=== PATIENT | female | born 1990 | race Caucasian/White ===

== ENCOUNTER 2019-01-19 15:44 | Outpatient (CLI) | payer MEDICAID ==
[2019-01-19 16:06] LABS: ADD UMIC NO; UR ASCORBIC ACID NEGATIVE (NEGATIVE); UR BILIRUBIN (Dip) NEGATIVE (NEGATIVE); UR BLOOD (Dip) NEGATIVE (NEGATIVE); UR CLARITY CLEAR (CLEAR); UR COLOR STRAW (YELLOW); UR GLUCOSE (Dip) NEGATIVE (NEGATIVE); UR KETONES (Dip) NEGATIVE (NEGATIVE); UR LEUKOCYTE ESTERASE (Dip) NEGATIVE Leu/ul (NEGATIVE); UR NITRITE (Dip) NEGATIVE (NEGATIVE); UR SPECIFIC GRAVITY (Dip) 1.008 (1.003-1.030); UR TOTAL PROTEIN (Dip) NEGATIVE (NEGATIVE); UR UROBILINOGEN (Dip) NEGATIVE (NEGATIVE)
[2019-01-19] MEDS ORDERED: TERBUTALINE 1 ML (16:36)
[2019-01-19] MEDS: TERBUTALINE 1 MG/ML INJ SC (16:47)
[2019-01-19] MEDS: LACTATED RINGER'S 1,000 ML IV (16:47)
[2019-01-19 17:35] LABS: ADD MAN DIFF? NO
[2019-01-19 17:37] LABS: BASOPHILS % 0.2 % (0.0-2.0); EOSINOPHILS # 0.2 10^3/ul (0.0-0.5); EOSINOPHILS % 1.5 % (0.0-7.0); HEMATOCRIT 29.6 % (37.0-47.0); HEMOGLOBIN 9.1 g/dl (12.0-16.0); LYMPHOCYTES % 18.2 % (15.0-51.0); MEAN CORPUSCULAR HEMOGLOBIN 24.9 pg (29.0-33.0); MEAN CORPUSCULAR HGB CONC 30.7 g/dl (32.0-37.0); MEAN CORPUSCULAR VOLUME 80.9 fl (82.0-101.0); MEAN PLATELET VOLUME 10.8 fl (7.4-10.4); MONOCYTE # 0.8 10^3/ul (0.3-0.9); MONOCYTES % 7.6 % (0.0-11.0); NEUTROPHIL # 7.9 10^3/ul (1.6-7.5); NEUTROPHILS % 71.4 % (39.0-77.0); PLATELET COUNT 273 10^3/UL (140-415); RED BLOOD COUNT 3.66 10^6/ul (4.20-5.40); RED CELL DISTRIBUTION WIDTH 14.7 % (11.5-14.5)
[2019-01-19 17:37] LABS: WHITE BLOOD COUNT 11.1 10^3/ul (4.8-10.8)
== END 2019-01-19 18:50 | disposition home or self-care (01) ==
LOC: OBT 15:44 → L-D 15:45 → OBT 18:50
DX: O62.9 Abnormality of forces of labor, unspecified (principal); O34.212 Maternal care for vertical scar from previous cesarean delivery; O47.02 False labor before 37 completed weeks of gestation, second trimester; Z3A.23 23 weeks gestation of pregnancy
CPT/HCPCS: 36415; 76815; 76817; 81003; 85025; 87086; 96360; 96361

== ENCOUNTER 2019-05-04 18:00 | Outpatient (CLI) | payer MEDICAID ==
[2019-05-04 19:58] LABS: ADD UMIC YES; UR ASCORBIC ACID NEGATIVE (NEGATIVE); UR BILIRUBIN (Dip) NEGATIVE (NEGATIVE); UR BLOOD (Dip) 1+ mg/dL (NEGATIVE); UR CLARITY CLEAR (CLEAR); UR COLOR YELLOW (YELLOW); UR GLUCOSE (Dip) NEGATIVE (NEGATIVE); UR KETONES (Dip) NEGATIVE (NEGATIVE); UR LEUKOCYTE ESTERASE (Dip) NEGATIVE Leu/ul (NEGATIVE); UR MUCUS FEW /HPF (NONE SEEN); UR NITRITE (Dip) NEGATIVE (NEGATIVE); UR RBC 69 /HPF (0-5); UR SPECIFIC GRAVITY (Dip) 1.019 (1.003-1.030); UR SQUAMOUS EPITHELIAL CELL FEW /HPF (FEW); UR TOTAL PROTEIN (Dip) NEGATIVE (NEGATIVE); UR UROBILINOGEN (Dip) NEGATIVE (NEGATIVE); UR WBC 3 /HPF (0-5)
[2019-05-04] MEDS: LACTATED RINGER'S 1,000 ML IV ×2 (20:02→20:45)
== END 2019-05-04 21:38 | disposition home or self-care (01) ==
LOC: OBT 18:00 → L-D 18:01 → OBT 21:38
DX: O62.9 Abnormality of forces of labor, unspecified (principal); Z3A.38 38 weeks gestation of pregnancy
CPT/HCPCS: 36415; 76818; 81001; 87086; 96360

== ENCOUNTER 2019-05-11 12:00 | Inpatient (IN) | payer MEDICAID ==
[2019-05-11] MEDS ORDERED: MISOPROSTOL 200 MCG TAB PR ×2 (13:30→22:00)
[2019-05-11] MEDS ORDERED: CEFAZOLIN 2 GM/50 ML (PMX) 50 ML IVPB ×2 (13:30→22:00)
[2019-05-11] MEDS ORDERED: METHYLERGONOVINE 0.2 MG INJ IM ×2 (13:30→22:00)
[2019-05-11] MEDS ORDERED: CARBOPROST 250 MCG INJ IM ×2 (13:30→22:00)
[2019-05-11] MEDS ORDERED: OXYTOCIN 30 UNITS/LR 500 ML IV ×2 (13:30→22:00)
[2019-05-11 13:42] LABS: ADD MAN DIFF? NO
[2019-05-11 13:46] LABS: ABNORMAL IP MESSAGE 1; BASOPHILS % 0.3 % (0.0-2.0); EOSINOPHILS % 0.4 % (0.0-7.0); HEMATOCRIT 35.9 % (37.0-47.0); LYMPHOCYTES # 1.8 10^3/ul (0.8-2.9); LYMPHOCYTES % 25.7 % (15.0-51.0); MEAN CORPUSCULAR HEMOGLOBIN 24.9 pg (29.0-33.0); MEAN CORPUSCULAR HGB CONC 30.6 g/dl (32.0-37.0); MEAN CORPUSCULAR VOLUME 81.2 fl (82.0-101.0); MEAN PLATELET VOLUME 12.6 fl (7.4-10.4); MONOCYTE # 0.5 10^3/ul (0.3-0.9); MONOCYTES % 6.5 % (0.0-11.0); NEUTROPHIL # 4.6 10^3/ul (1.6-7.5); NEUTROPHILS % 66.8 % (39.0-77.0); PLATELET COUNT 190 10^3/UL (140-415); RED BLOOD COUNT 4.42 10^6/ul (4.20-5.40)
[2019-05-11 13:46] LABS: WHITE BLOOD COUNT 6.9 10^3/ul (4.8-10.8)
[2019-05-11 13:56] LABS: POSITIVE DIFF @See below
[2019-05-11] MEDS: LACTATED RINGER'S 1,000 ML IV ×3 (14:03→15:42)
[2019-05-11 14:04] LABS: INR 0.88; PT RATIO 0.9
[2019-05-11 14:33] LABS: HEPATITIS B SURFACE ANTIGEN NEGATIVE (NEGATIVE)
[2019-05-11] MEDS: FAMOTIDINE 20 MG INJ IV (16:28)
[2019-05-11] MEDS: AZITHROMYCIN 500MG/NS (PMX) 250 ML IV (16:28)
[2019-05-11] MEDS: METOCLOPRAMIDE 10 MG INJ IV (16:28)
[2019-05-11] MEDS: CITRIC ACID/NA CITRATE 30 ML CUP PO (16:28)
[2019-05-11] MEDS ORDERED: morphine SULFATE/PF (10 MG/10 ML) INJ (18:05)
[2019-05-11] MEDS ORDERED: OXYTOCIN 30 UNITS/LR 500 ML BAG IV (18:05)
[2019-05-11] MEDS ORDERED: EPHEDrine 25 MG/5 ML SYG (18:16)
[2019-05-11] MEDS ORDERED: ONDANSETRON 4 MG INJ (18:24)
[2019-05-11] MEDS ORDERED: PHENYLephrine (100 MCG/ML) 10ML SYG (18:25)
[2019-05-11] MEDS ORDERED: KETOROLAC 30 MG INJ IV (18:30)
[2019-05-11] MEDS ORDERED: HYDROmorphONE 1 MG/5 ML IV SYRINGE IV ×3 (18:30)
[2019-05-11] MEDS ORDERED: FENTAnyl 50 MCG/ML VIAL IV ×3 (18:30)
[2019-05-11] MEDS ORDERED: DIPHENHYDRAMINE 50 MG INJ IV (18:30)
[2019-05-11] MEDS ORDERED: PROCHLORPERAZINE 10 MG INJ IV (18:30)
[2019-05-11] MEDS ORDERED: ONDANSETRON 4 MG INJ IV ×2 (18:30→19:30)
[2019-05-11] MEDS ORDERED: MEPERIDINE 25 MG INJ IV (18:30)
[2019-05-11] MEDS: ACETAMINOPHEN 500 MG TAB PO (19:16)
[2019-05-11] MEDS ORDERED: HYDROmorphONE 0.5 MG/0.5 ML SYG IV ×2 (19:30)
[2019-05-11] MEDS ORDERED: NALOXONE (0.4 MG/ML) INJ IV (19:30)
[2019-05-11] MEDS ORDERED: ZOLPIDEM 5 MG TAB PO (19:30)
[2019-05-11 20:31] LABS: RAPID PLASMA REAGIN NONREACTIVE (NR)
[2019-05-11] MEDS ORDERED: NA PHOSPHATE/BIPHOS 133 ML ENEMA PR (22:00)
[2019-05-11] MEDS ORDERED: LANOLIN HPA 1 PKT TOP (22:00)
[2019-05-11] MEDS: KETOROLAC 30 MG INJ IV (22:20)
[2019-05-11] MEDS: OXYTOCIN 30 UNITS/LR 500 ML IV (22:20)
[2019-05-11] MEDS: DIPHENHYDRAMINE 50 MG INJ IV (22:21)
[2019-05-11] MEDS: KETOROLAC 30 MG INJ IM (22:36)
[2019-05-12] MEDS: CEFAZOLIN 2 GM/50 ML (PMX) 50 ML IVPB ×3 (02:00→17:44)
[2019-05-12] MEDS: CLINDAMYCIN 300 MG CAP PO ×4 (05:34→18:03)
[2019-05-12 08:22] LABS: ADD MAN DIFF? NO
[2019-05-12] MEDS: LACTATED RINGER'S 1,000 ML IV (08:24)
[2019-05-12] MEDS: SENNA/DOCUSATE NA (8.6MG/50MG) TAB PO ×2 (08:25→21:32)
[2019-05-12] MEDS: OXYTOCIN 30 UNITS/LR 500 ML IV (08:30)
[2019-05-12 08:31] LABS: ABNORMAL IP MESSAGE 1; BASOPHILS % 0.2 % (0.0-2.0); EOSINOPHILS % 0.5 % (0.0-7.0); HEMATOCRIT 30.3 % (37.0-47.0); HEMOGLOBIN 9.4 g/dl (12.0-16.0); LYMPHOCYTES # 1.7 10^3/ul (0.8-2.9); LYMPHOCYTES % 20.9 % (15.0-51.0); MEAN CORPUSCULAR HEMOGLOBIN 25.2 pg (29.0-33.0); MEAN CORPUSCULAR VOLUME 81.2 fl (82.0-101.0); MEAN PLATELET VOLUME 12.2 fl (7.4-10.4); MONOCYTE # 0.5 10^3/ul (0.3-0.9); MONOCYTES % 6.5 % (0.0-11.0); NEUTROPHIL # 5.8 10^3/ul (1.6-7.5); NEUTROPHILS % 71.5 % (39.0-77.0); PLATELET COUNT 146 10^3/UL (140-415); RED BLOOD COUNT 3.73 10^6/ul (4.20-5.40); RED CELL DISTRIBUTION WIDTH 17.8 % (11.5-14.5)
[2019-05-12 08:31] LABS: WHITE BLOOD COUNT 8.1 10^3/ul (4.8-10.8)
[2019-05-12 08:33] LABS: POSITIVE DIFF @See below
[2019-05-12] MEDS: KETOROLAC 30 MG INJ IV ×2 (10:18→16:54)
[2019-05-12] MEDS: BISACODYL 10 MG SUPP PR (14:15)
[2019-05-12] MEDS ORDERED: OXYCODONE/ACETAMINOPHEN (5/325) TAB PO (19:30)
[2019-05-12] MEDS: IBUPROFEN 800 MG TAB PO (21:32)
[2019-05-13] MEDS: CLINDAMYCIN 300 MG CAP PO ×4 (00:01→17:48)
[2019-05-13] MEDS: IBUPROFEN 800 MG TAB PO ×2 (05:58→14:44)
[2019-05-13] MEDS: SENNA/DOCUSATE NA (8.6MG/50MG) TAB PO (09:00)
[2019-05-13] MEDS: HYDROCODONE/APAP (5/325) TAB PO (11:24)
[2019-05-13] MEDS ORDERED: ACETAMINOPHEN 325 MG TAB PO (18:00)
[2019-05-14] MEDS ORDERED: DIPHTH/TET/ACEL PERTUSS (ADULT) 0.5 ML VIAL IM* (09:00)
[2019-05-14] MEDS ORDERED: MEASLES,MUMPS,RUBELLA VACCINE INJ SC* (09:00)
== END 2019-05-13 23:00 | disposition home or self-care (01) | DRG 788 ==
LOC: L-D 12:00 → PP1 21:52
PROVIDERS: Obstetrics & Gynecology
PROC: 10D00Z1 Extraction of Products of Conception, Low, Open Approach (ICD-10-PCS; principal; 2019-05-11 15:30)
DX: O34.211 Maternal care for low transverse scar from previous cesarean delivery (principal); Z3A.39 39 weeks gestation of pregnancy; Z37.0 Single live birth
CPT/HCPCS: 85025; 85610; 85730; 86592; 86850; 86900; 86901; 86920; 87340; 99464